=== PATIENT | female | born 1950 | race Caucasian/White ===

== ENCOUNTER → 2023-08-30 08:39 | Outpatient (REF) | payer OTHER, SELFPAY | LOC: HWRAD 08:39 | PROVIDERS: ATTENDING PHYSICIAN Urology; FAMILY PHYSICIAN Family Medicine | DX: N20.0 Calculus of kidney (principal); N20.1 Calculus of ureter; Z87.442 Personal history of urinary calculi | CPT/HCPCS: 76775 ==

== ENCOUNTER 2023-10-17 10:35 | Emergency (ER) | payer OTHER, SELFPAY ==
[2023-10-17 11:10] LABS: % Basophils 0.8 % (0-2); % Eosinophils 4.6 % (0-6); % Immature Granulocytes 0.1 % (0-0.5); % Lymphocytes 21.4 % (20.5-51.1); % Monocytes 6.1 % (1.7-9.3); Absolute Basophils 0.1 10^3/uL (0-0.2); Absolute Eosinophils 0.4 10^3/uL (0-0.7); Absolute Lymphocytes 1.6 10^3/uL (1.2-3.4); Absolute Monocytes 0.5 10^3/uL (0.1-0.6); Absolute Neutrophils 5.1 10^3/uL (1.4-6.5); Hematocrit 36.4 % (37.0-47.0); Hemoglobin 12.5 g/dL (12.0-16.0); Mean Corp Hgb Conc. 34.3 g/dL (33.0-37.0); Mean Corpuscular Hgb 30.6 pg (27.0-31.0); Mean Corpuscular Volume 89.2 fL (81.0-99.0); Mean Platelet Volume 9.8 fL (7.4-10.4); Nucleated Red Blood Cells % 0 %; Platelet Count 321 10^3/uL (130-400); Red Blood Cell Count 4.08 10^6/uL (4.20-5.40); Red Cell Dist. Width 12.9 % (11.5-14.5); White Blood Cell Count 7.5 10^3/uL (4.8-10.8)
[2023-10-17 11:37] LABS: ALT (SGPT) 32 U/L (0-35); AST (SGOT) 34 U/L (14-36); Albumin 4.8 g/dl (3.5-5.0); Alkaline Phosphatase 51 U/L (38-126); Blood Urea Nitrogen 15 mg/dl (7-17); Calcium 10.5 mg/dl (8.4-10.2); Carbon Dioxide 28 mmol/L (22-30); Chloride 103 mmol/L (98-107); Glucose 110 mg/dl (70-99); Potassium 4.4 mmol/L (3.5-5.1); Sodium 138 mmol/L (135-145); Total Bilirubin 0.7 mg/dl (0.2-1.3); Total Protein 7.8 g/dl (6.3-8.2); eGFR > 60.00
[2023-10-17 11:46] LABS: Troponin I < 0.012 ng/ml
[2023-10-17] MEDS: PROTONIX IV 40 MG IV (13:37)
[2023-10-17 14:04] VITALS: BP 138/74
--- NOTE | 2023-10-17 14:34 | ED.GENMED ---
History of Present Illness
General
Chief Complaint: Chest Pain
Source: patient, records and spouse
Exam Limitations: none
Time Seen by Provider: 10/17/23 12:28
Nursing documentation reviewed up to this point in time: agreed with
Travel History
Have you had any contact with someone who has COVID-19?: No
Do you have any symptoms of coronavirus? Fever > 100 degrees, chills, cough, shortness of breath, sore throat, loss of taste or smell, muscle aches, or headache?: No
History of Present Illness
History of Present Illness:
72-year-old female history of peripheral vascular disease manifested on routine screening of her carotids, as part of workup to receive IV anticholesterol meds, also reflux, does not tolerate PPIs due to diarrhea, no history of heart disease has
only 1+ weeks of dyspepsia pressure chest after eating, not associated with exercise she does exercise a few days a week at the gym and has no symptoms, no nausea or vomiting no diaphoresis, has had stress test, told that they were unremarkable,
never had a cardiac cath,
Past History
Past History
ED Past Medical History: GERD, HTN, Hypercholesterolemia and Other; Negative Cancer
ED Past Surgical History: Gynecological (Hysterectomy, breast lumpectomy), Urological (Extracorporeal shockwave lithotripsy 01/18/2013 left kidney.) and Other (Carotid endarterectomy)
Social History
Tobacco: Non-smoker
Alcohol: Occasional
Drug: None
Personal:
Living: with family
Employment: Retired
Family History
Family History: Hypertension
Review of Systems
Review of Systems
All Other Systems: Not applicable
Constitutional: Denies fever or fatigue
EENT: Reports no symptoms
Respiratory: Reports no symptoms; Denies trouble breathing
Cardiac: Reports chest pain; Denies diaphoresis or palpitations
ABD/GI: Reports abdominal pain; Denies nausea
: Reports no symptoms
Musculoskeletal: Reports no symptoms
Skin: Reports no symptoms
Neurological: Reports no symptoms
Psychiatric: Reports no symptoms
Phy Exam
Physical Exam
Physical Exam:
Physical Exam
General: no apparent distress, not acutely ill
Neck: No jaundice
Heart: s1/s2 regular rate and rhythm, no murmur. equal radial pulses.
Lungs: no acute respiratory distress. clear bilaterally
Abdomen: Nontender
Neuro: alert and oriented. no focal neurological deficits
Skin: no rash
Psychiatric: well kept. interactive and cooperative
Extremities: no edema. no calf tenderness.
Scores
Heart Score for Chest Pain Patients
STEMI patient?: Not applicable
History: Slightly or Non-Suspicious
ECG: Normal
Age: >45 - <65 years
Risk Factors: 1 or 2 Risk Factors
Troponin: </= Normal Limit
Heart Score for Chest Pain Patients: 2
Heart Score Risk: 2.5% MACE over next 6 weeks
Course
Orders/Labs/Results
Orders:
Orders
10/17/23 10:37
EKG [Electrocardiogram (*1)] Urgent
Reason for Study: Chest Pain
EKG- Treatment ONCE
10/17/23 11:04
Complete Blood Count/With Diff Urgent
Comprehensive Metabolic Panel Urgent
Troponin I Urgent
10/17/23 13:29
US Abdomen Complete/Upper Urgent
Comment:
Reason For Exam: pain
10/17/23 13:30
Pantoprazole [Protonix IV] 40 mg IV NOW STA
10/17/23 13:36
Lipase Urgent
Troponin I Urgent
Abnormal Lab Results
10/17/23
11:04
RBC 4.08 L 10^6/uL
(4.20-5.40)
Hct 36.4 L %
(37.0-47.0)
Glucose 110 H mg/dl
(70-99)
Calcium 10.5 H mg/dl
(8.4-10.2)
10/17/23 11:04
10/17/23 11:04
Vital Signs
Initial and Last Documented VS:
Initial Vital Signs
Temp Pulse Resp Pulse Ox
98.6 F 72 18 97
10/17/23 10:52 10/17/23 10:52 10/17/23 10:52 10/17/23 10:52
Last Documented Vital Signs
Temp Pulse Resp BP Pulse Ox
98.6 F 76 18 123/76 98
10/17/23 10:52 10/17/23 16:51 10/17/23 16:51 10/17/23 16:51 10/17/23 16:51
MDM/Problems Addressed
Differential Diagnosis Includes:
Reflux GERD pancreatitis biliary colic less likely ACS doubt PE
MDM/Problems Addressed:
Chest pain
Chronic conditions affecting care:
Reflux, peripheral vascular disease
*Radiology
Radiology exam reviewed: radiology read reviewed
*Pulse Oximetry
Patient hypoxic: no
*EKG
Interpreted by ED Provider?: Yes
Interpretation: normal
Comparison EKG: no comparison EKG present
Heart Rate: 70
Rate: normal
Rhythm: sinus
Ischemia: no ischemia
*Document Review Specialist Interpretation
Rate: Document Review Specialist- N/A
*Critical Care Note
Total Time (30-74mins, 75-104mins- exclusive of procedures): Not Applicable
Data Reviewed
Review of Other/Old Records Reveals: Records and Radiology Studies
Source: patient and spouse
Update Note
Update Note:
Update, symptoms do appear most consistent with reflux, possibly biliary, mid abdomen does go to her back, only after eating she exercises frequently gets no symptoms, does have peripheral vascular disease with now she is now has good control of her
symptoms with IV anticholesterol meds
Troponin noted EKG noted we will repeat will add lipase, also check right upper quadrant ultrasound
ED Attending Note
-
Portions of this chart may have been created with voice recognition software.� Occasional wrong word or��sound alike� substitutions may have occurred due to the inherent limitations of voice recognition software.
Discharge Plan
Departure
Patient Disposition: Home (Routine Discharge)
Date of Disposition: 10/17/23
Time of Disposition: 15:19
Patient with high blood pressure during this ER visit?: No
Condition: Good
Covid-19: Not Applicable
Discharge Problem:
GERD (gastroesophageal reflux disease), Chest pain
Instructions: Acid Reflux and GERD in Adults (DC), Chest Pain CBC Follow Up
Prescriptions:
New
sucralfate [Carafate] 100 mg/mL suspension
5 ml PO QID Qty: 400 2RF
pantoprazole [Protonix] 40 mg tablet,delayed release (DR/EC)
40 mg PO BID 14 Days Qty: 28 2RF
No Action
Alirocumab [Praluent Pen] 75 MG/ML Pen.Injctr
75 mg SQ Q2W
celecoxib 200 MG capsule
200 mg PO PRN PRN (Reason: pain)
cyanocobalamin (vitamin B-12) 1,000 MCG tablet
1,000 mcg PO DAILY
cranberry conc-ascorbic acid [Cranberry Concentrate] 1 EACH capsule
1 cap PO DAILY
Patient Comments:
4200 MG
aspirin 81 MG tablet,delayed release (DR/EC)
81 mg PO QPM
ascorbic acid (vitamin C) [Vitamin C] 500 MG tablet
500 mg PO DAILY
estradiol 1 APPLIC cream
1 applic VAG TUFR
esomeprazole magnesium [Nexium] 20 MG capsule,delayed release(DR/EC)
20 mg PO PRN PRN (Reason: GERD)
hydrochlorothiazide 12.5 MG tablet
12.5 mg PO DAILY
cetirizine 10 MG tablet
10 mg PO DAILY
fluticasone propionate 1 SPRAY spray,suspension
2 spray intranasal DAILY
acetaminophen [Tylenol] 325 MG capsule
650 mg PO DAILY
L.acidoph, paracasei,B. lactis 1 EACH capsule
1 ea PO DAILY
vitamin D3-vitamin K2 (MK4) [K2 Plus D3] 1 EACH tablet
1 ea PO DAILY
losartan 25 MG tablet
25 mg PO DAILY
diclofenac sodium 100 GRAM/TUBE gel
1 applic topical DAILYPRN PRN (Reason: knee arthritis pain)
losartan 25 MG tablet
75 mg PO QPM
Referrals:
Billie Ayers DO [Family Provider] -
Interventions
Interventions:
*Risk Screen - Suicide Last Done: 10/17/23 10:52
*General Assessment Last Done: 10/17/23 10:52
*Neglect/Abuse Screening Last Done: 10/17/23 10:52
ED- Fall Risk Assessment Last Done: 10/17/23 14:04
*ED COVID-19 Vaccine History Last Done: 10/17/23 10:52
*Nursing Disposition Last Done: 10/17/23 16:52
ED- Cardiac Assessment Last Done: 10/17/23 14:04
Discharge Date and Time
Discharge Date/Time: 10/17/23 17:09
Print Language: CITIZEN OF [place]
[2023-10-17 14:58] LABS: Lipase 98 U/L (23-300)
[2023-10-17 15:10] LABS: Troponin I < 0.012 ng/ml
[2023-10-17 16:51] VITALS: BP 123/76
== END 2023-10-17 17:09 | disposition home or self-care (01) ==
LOC: EMR 10:35
PROVIDERS: Student in an Organized Health Care Education/Training Program; EMERGENCY PHYSICIAN Emergency Medicine; FAMILY PHYSICIAN Family Medicine
DX: K21.9 Gastro-esophageal reflux disease without esophagitis (principal); R07.89 Other chest pain; R10.9 Unspecified abdominal pain; I73.9 Peripheral vascular disease, unspecified; I10 Essential (primary) hypertension; E78.00 Pure hypercholesterolemia, unspecified; M19.90 Unspecified osteoarthritis, unspecified site; Z79.82 Long term (current) use of aspirin; Z87.442 Personal history of urinary calculi; Z85.828 Personal history of other malignant neoplasm of skin; Z88.2 Allergy status to sulfonamides; Z88.8 Allergy status to other drugs, medicaments and biological substances; Z91.048 Other nonmedicinal substance allergy status
CPT/HCPCS: 99284; 96374; 76700; 80053; 83690; 84484; 85025; 93005

== ENCOUNTER → 2024-01-31 11:01 | Outpatient (REF) | payer OTHER, SELFPAY | LOC: RAD 11:01 | PROVIDERS: ATTENDING PHYSICIAN Surgery Vascular Surgery; FAMILY PHYSICIAN Family Medicine | DX: I65.21 Occlusion and stenosis of right carotid artery (principal) | CPT/HCPCS: 93880 ==

== ENCOUNTER → 2024-05-08 09:16 | Outpatient (REF) | payer OTHER, SELFPAY | LOC: HWRAD 09:16 | PROVIDERS: ATTENDING PHYSICIAN Urology; FAMILY PHYSICIAN Family Medicine | DX: N20.0 Calculus of kidney (principal) | CPT/HCPCS: 76775 ==

== ENCOUNTER → 2024-09-11 15:01 | Outpatient (REF) | payer OTHER, SELFPAY | LOC: HWRAD 15:01 | PROVIDERS: ATTENDING PHYSICIAN Family Medicine | DX: R10.31 Right lower quadrant pain (principal) | CPT/HCPCS: 73502 ==

== ENCOUNTER → 2024-09-18 07:53 | Outpatient (REF) | payer OTHER, SELFPAY | LOC: HWRAD 07:53 | PROVIDERS: ATTENDING PHYSICIAN Physician Assistant; FAMILY PHYSICIAN Family Medicine | DX: R10.13 Epigastric pain (principal) | CPT/HCPCS: 76700 ==

== ENCOUNTER → 2024-10-04 12:22 | Outpatient (REF) | payer OTHER, SELFPAY | LOC: HWWDC 12:22 | PROVIDERS: ATTENDING PHYSICIAN Family Medicine | DX: Z12.31 Encounter for screening mammogram for malignant neoplasm of breast (principal) | CPT/HCPCS: 77063; 77067 ==

== ENCOUNTER → 2024-12-26 11:25 | Outpatient (REF) | payer OTHER, SELFPAY | LOC: HWRAD 11:25 | PROVIDERS: ATTENDING PHYSICIAN Ophthalmology; FAMILY PHYSICIAN Family Medicine | DX: H30.92 Unspecified chorioretinal inflammation, left eye (principal) | CPT/HCPCS: 71046 ==

== ENCOUNTER → 2025-01-01 19:25 | Outpatient (REF) | payer OTHER, SELFPAY | LOC: MRI 19:25 | PROVIDERS: ATTENDING PHYSICIAN Ophthalmology; FAMILY PHYSICIAN Family Medicine | DX: H30.92 Unspecified chorioretinal inflammation, left eye (principal) | CPT/HCPCS: 70553; A9575 ==

== ENCOUNTER → 2025-02-01 11:00 | Outpatient (REF) | payer OTHER, SELFPAY | LOC: RAD 11:00 | PROVIDERS: ATTENDING PHYSICIAN Registered Nurse; FAMILY PHYSICIAN Family Medicine | DX: I65.21 Occlusion and stenosis of right carotid artery (principal) | CPT/HCPCS: 93880 ==

== ENCOUNTER 2025-02-04 06:58 | Emergency (ER) | payer OTHER, SELFPAY ==
[2025-02-04 06:58] VITALS: BP 185/91
[2025-02-04 07:48] VITALS: BMI 23.3
--- NOTE | 2025-02-04 08:18 | ED.GENMED ---
History of Present Illness
General
Chief Complaint: Eye Problems
Source: patient
Exam Limitations: none
Time Seen by Provider: 02/04/25 07:08
History of Present Illness
History of Present Illness:
74-year-old female presents with increasingly painful and red left eye. She had surgery on her left eye at [facility] about 2 weeks ago. She notes she has been tapering off of steroid drops. She is supposed to go down to 2 drops today as
opposed to 3 drops daily for the past week. She notes that her vision since surgery has been improving however now she is light sensitive there is more redness and there is pain with motion of her eye. She denies fevers. She tried to get hold of
[facility] over the past couple days but has not heard back.
Past History
Past History
ED Past Medical History: GERD, HTN, Hypercholesterolemia and Other; Negative Cancer
ED Past Surgical History: Gynecological (Hysterectomy, breast lumpectomy), Urological (Extracorporeal shockwave lithotripsy 01/18/2013 left kidney.) and Other (Carotid endarterectomy)
Social History
Tobacco: Non-smoker
Alcohol: Occasional
Drug: None
Personal:
Living: with family
Employment: Retired
Family History
Family History: Hypertension
Phy Exam
Physical Exam
Physical Exam:
General: Well-appearing female no acute respiratory distress
HEENT: Normocephalic pupils are equal round reactive to light there is some scleral injection of the left eye no proptosis. Extraocular motions are intact however these are slightly painful
With pressure in the left eye was averaging 16 mmHg. Examination slit-lamp provide scleral injection clear anterior chamber Limited view of the retina
Skin: Surrounding skin is without erythema
Course
Orders/Labs/Results
Orders:
Orders
02/04/25 09:04
Acetaminophen [Tylenol] 1,000 mg PO NOW STA
Vital Signs
Initial and Last Documented VS:
Initial Vital Signs
Temp Pulse Resp BP Pulse Ox
97.8 F 83 18 185/91 98
02/04/25 06:58 02/04/25 06:58 02/04/25 06:58 02/04/25 06:58 02/04/25 06:58
Last Documented Vital Signs
Temp Pulse Resp BP Pulse Ox
97.8 F 77 16 146/60 99
02/04/25 06:58 02/04/25 09:15 02/04/25 09:15 02/04/25 09:15 02/04/25 09:15
MDM/Problems Addressed
Differential Diagnosis Includes:
Patient with painful red eye 2 weeks following an eye surgery that was performed for either uveitis or lymphoma. She has been tapering off prednisone drops. She is not currently on an antibiotic drop. She notes a pain and ache around the eye
which is new. Eye motions are painful there is no proptosis. Pressure is good on exam. Will contact ophthalmology
*Pulse Oximetry
SaO2: 98
Oxygen Mode of Delivery: Room air
Patient hypoxic: no
*Critical Care Note
Total Time (30-74mins, 75-104mins- exclusive of procedures): Not Applicable
Update Note
Update Note:
Visual acuity noted. Discussed patient with the patient's surgeon of record. I was advised to discharge patient from the emergency room she will go right to the [facility] to be evaluated by retinal specialist
ED Attending Note
-
Portions of this chart may have been created with voice recognition software.� Occasional wrong word or��sound alike� substitutions may have occurred due to the inherent limitations of voice recognition software.
Discharge Plan
Departure
Patient Disposition: Home (Routine Discharge)
Date of Disposition: 02/04/25
Time of Disposition: 09:29
Patient with high blood pressure during this ER visit?: No
Discharge Problem:
Acute left eye pain
Prescriptions:
No Action
Alirocumab [Praluent Pen] 75 MG/ML Pen.Injctr
75 mg SQ Q2W
celecoxib 200 MG capsule
200 mg PO PRN PRN (Reason: pain)
cyanocobalamin (vitamin B-12) 1,000 MCG tablet
1,000 mcg PO DAILY
cranberry conc-ascorbic acid [Cranberry Concentrate] 1 EACH capsule
1 cap PO DAILY
Patient Comments:
4200 MG
aspirin 81 MG tablet,delayed release (DR/EC)
81 mg PO QPM
ascorbic acid (vitamin C) [Vitamin C] 500 MG tablet
500 mg PO DAILY
estradiol 1 APPLIC cream
1 applic VAG TUFR
esomeprazole magnesium [Nexium] 20 MG capsule,delayed release(DR/EC)
20 mg PO PRN PRN (Reason: GERD)
hydrochlorothiazide 12.5 MG tablet
12.5 mg PO DAILY
cetirizine 10 MG tablet
10 mg PO DAILY
fluticasone propionate 1 SPRAY spray,suspension
2 spray intranasal DAILY
acetaminophen [Tylenol] 325 MG capsule
650 mg PO DAILY
L.acidoph,paracasei,B.animalis 1 EACH capsule
1 ea PO DAILY
vitamin D3-vitamin K2 (MK4) [K2 Plus D3] 1 EACH tablet
1 ea PO DAILY
losartan 25 MG tablet
25 mg PO DAILY
diclofenac sodium 100 GRAM/TUBE gel
1 applic topical DAILYPRN PRN (Reason: knee arthritis pain)
losartan 25 MG tablet
75 mg PO QPM
sucralfate [Carafate] 100 mg/mL suspension
5 ml PO QID Qty: 400 2RF
pantoprazole [Protonix] 40 mg tablet,delayed release (DR/EC)
40 mg PO BID 14 Days Qty: 28 2RF
Referrals:
Billie Ayers DO [Family Provider, Family Practice]
Activity Restrictions/Additional Instructions:
Please go to directly to the [facility] eye office and see the retinal specialist there
Interventions
Interventions:
*Risk Screen - Suicide Last Done: 02/04/25 06:58
*General Assessment Last Done: 02/04/25 06:58
*Neglect/Abuse Screening Last Done: 02/04/25 06:58
*ED- Fall Risk Assessment Last Done: 02/04/25 07:48
*ED COVID-19 Vaccine History Last Done: 02/04/25 07:48
Discharge Date and Time
Print Language: [place]
[2025-02-04] MEDS: TYLENOL 1000 MG PO (09:14)
[2025-02-04 09:15] VITALS: BP 146/60
== END 2025-02-04 09:41 | disposition home or self-care (01) ==
LOC: EMR 06:58
PROVIDERS: EMERGENCY PHYSICIAN Student in an Organized Health Care Education/Training Program; FAMILY PHYSICIAN Family Medicine
DX: H57.12 Ocular pain, left eye (principal); I10 Essential (primary) hypertension; E78.00 Pure hypercholesterolemia, unspecified; Z98.890 Other specified postprocedural states
CPT/HCPCS: 99283

== ENCOUNTER → 2025-04-04 12:43 | Outpatient (REF) | payer OTHER, SELFPAY | LOC: EMG 12:43 | PROVIDERS: ATTENDING PHYSICIAN Orthopaedic Surgery; FAMILY PHYSICIAN Family Medicine | DX: R20.0 Anesthesia of skin (principal) | CPT/HCPCS: 95886; 95911 ==